=== PATIENT | female | born 1960 | race Caucasian/White ===

== ENCOUNTER 2016-07-28 10:42 | Emergency (ER) | payer OTHER ==
[2016-07-28] MEDS ORDERED: DIPHTH,PERTUSS(ACELL),TET VAC 0.5 ML VIAL IM V ONE (12:05)
== END 2016-07-28 12:46 | disposition home or self-care (01) ==
LOC: ED 10:42
DX: S61.011A Laceration without foreign body of right thumb without damage to nail, initial encounter (principal); I10 Essential (primary) hypertension; F17.210 Nicotine dependence, cigarettes, uncomplicated; Z23 Encounter for immunization; W45.8XXA Other foreign body or object entering through skin, initial encounter; W22.8XXA Striking against or struck by other objects, initial encounter; Y93.H9 Activity, other involving exterior property and land maintenance, building and construction; Y92.009 Unspecified place in unspecified non-institutional (private) residence as the place of occurrence of the external cause